=== PATIENT | male | born 1945 | race Caucasian/White ===

== ENCOUNTER 2020-10-25 16:41 | Emergency (ER) | payer MEDICARE ==
[~2020-10-25] VITALS: Ht 188 cm; Wt 90.0 kg
[~2020-10-25 16:41] MED LIST: DEC4T PO
[2020-10-25 19:05] LABS: BASOPHILS % (AUTO) 0.2 % (0-1); EOSINOPHILS # (AUTO) 0.1 X10'3 (0-0.9); EOSINOPHILS % (AUTO) 1.3 % (0-6); HEMATOCRIT 40.4 % (42.0-52.0); HEMOGLOBIN 13.1 g/dl (14.0-17.9); LYMPHOCYTES # (AUTO) 1.1 X10'3 (1.1-4.8); LYMPHOCYTES % (AUTO) 11.3 % (21-51); MEAN CORPUSCULAR HGB CONC 32.6 g/dL (33.0-36.5); MEAN CORPUSCULAR VOLUME 88.9 FL (78-98); MEAN PLATELET VOLUME 8.7 FL (7.4-10.4); MONOCYTES % (AUTO) 9.7 % (2-12); NEUTROPHILS # (AUTO) 7.7 X10'3 (1.8-7.7); NEUTROPHILS % (AUTO) 77.5 % (42-75); PLATELET COUNT 190 X10'3 (140-440); RED BLOOD COUNT 4.54 X10'6 (4.70-6.10); WHITE BLOOD COUNT 9.9 X10'3 (4.5-11.0)
[2020-10-25 19:13] LABS: ALANINE AMINOTRANSFERASE 50 U/L (12-78); ALBUMIN 2.6 G/DL (3.4-5.0); ALBUMIN/GLOBULIN RATIO 0.7 (1.1-1.5); ALKALINE PHOSPHATASE 118 IU/L (46-116); ANION GAP 10 (8-16); ASPARTATE AMINO TRANSFERASE 24 U/L (10-37); BILIRUBIN,TOTAL 0.8 MG/DL (0.1-1.0); BLOOD UREA NITROGEN 17 MG/DL (7-18); BUN/CREATININE RATIO 14.2 (5.4-32.0); CALCIUM 7.9 MG/DL (8.5-10.1); CHLORIDE 107 MMOL/L (99-107); GLUCOSE 103 MG/DL (70-104); LIPASE 184 U/L (73-393); POTASSIUM 3.8 MMOL/L (3.5-5.1); SODIUM 144 MMOL/L (135-145); TOTAL CARBON DIOXIDE 26.7 MMOL/L (24-32); TOTAL PROTEIN 6.5 G/DL (6.4-8.2); eGFR 59 ML/MIN
[2020-10-25 20:10] LABS: BANDS% (MANUAL) 11 % (0-10); EOSINOPHILS % (MANUAL) 1 % (0-6); LYMPHOCYTES % (MANUAL) 10 % (21-51); METAMYLEOCYTES% (MANUAL) 3 % (0-0); MONOCYTES % (MANUAL) 4 % (2-12); NEUTROPHILS % (MANUAL) 71 % (42-75); PLATELET ESTIMATE NORMAL; TOTAL CELLS COUNTED 100
[2020-10-26 00:08] LABS: CLARITY,URINE CLEAR (Clear); COLOR,URINE YELLOW (Yellow); GLUCOSE, URINE 100 mg/dl (Neg); KETONES,URINE NEGATIVE (Neg); LEUKOCYTE ESTERASE ,URINE NEGATIVE (Neg); NITRITES, URINE NEGATIVE (Neg); OCCULT BLOOD,URINE MODERATE (Neg); PH,URINE 6.5 (4.8-8.0); PROTEIN,URINE 30 mg/dl (Neg)
[2020-10-26 00:20] LABS: UA COLLECTION TYPE CLN CATCH MIDSTREAM
[2020-10-26 00:25] LABS: BACTERIA,URINE NONE SEEN /HPF (Neg); SQUAMOUS EPITHELIAL CELL,UR NONE SEEN /LPF (FEW); WBC,URINE NONE SEEN /HPF (0-4)
[2020-10-26 00:58] VITALS: BP 124/78
== END 2020-10-26 01:00 | disposition home or self-care (01) ==
LOC: ER 16:42
DX: R53.1 Weakness (principal); R32 Unspecified urinary incontinence; R19.7 Diarrhea, unspecified; Z86.16 Personal history of COVID-19; Z79.899 Other long term (current) drug therapy
CPT/HCPCS: 36415; 80053; 81001; 81003; 83690; 85007; 85025; 99285

== ENCOUNTER 2020-11-30 20:52 | Emergency (ER) | payer MEDICARE ==
[~2020-11-30] VITALS: Ht 188 cm; Wt 93.2 kg
[2020-11-30] MEDS ORDERED: CEPH-585 PO (23:33)
[2020-11-30 23:47] VITALS: BP 134/95
== END 2020-11-30 23:49 | disposition home or self-care (01) ==
LOC: ER 20:53
DX: S91.302A Unspecified open wound, left foot, initial encounter (principal); S91.301A Unspecified open wound, right foot, initial encounter; L03.90 Cellulitis, unspecified; X58.XXXA Exposure to other specified factors, initial encounter; Y93.89 Activity, other specified; Y92.89 Other specified places as the place of occurrence of the external cause; Y99.8 Other external cause status
CPT/HCPCS: 99283

== ENCOUNTER 2021-01-15 17:56 | Emergency (ER) | payer MEDICARE, OTHER ==
[~2021-01-15] VITALS: Ht 188 cm; Wt 90.9 kg
[~2021-01-15 17:56] MED LIST changes: +CEPH-585 PO; -DEC4T PO
[2021-01-15 19:27] VITALS: BP 129/87
[2021-01-15] MEDS ORDERED: orphenadrine citrate 60mg/2ml inj. IM ONE (21:35)
[2021-01-15] MEDS ORDERED: ORPH100T2 PO (21:43)
== END 2021-01-15 22:48 | disposition home or self-care (01) ==
LOC: ER 17:57
DX: G44.319 Acute post-traumatic headache, not intractable (principal); M54.2 Cervicalgia; Z79.2 Long term (current) use of antibiotics; Z79.899 Other long term (current) drug therapy
CPT/HCPCS: 70450; 72125; 96372; 99285; J2360